=== PATIENT | female | born 1985 | race Caucasian/White ===

== ENCOUNTER 2020-04-01 16:18 | Outpatient (CLI) | payer OTHER ==
[~2020-04-01] VITALS: Ht 160 cm; Wt 105.5 kg
--- NOTE | 2020-04-01 16:30 | NUR ---
Pt arrives on unit ambulatory. G3L2 at 32 weeks per pt hx. Repeat section x 2. Recieves [facility] in [place]. Reports "menstrual-like" cramps every 5 minutes lasting 1.5minutes long. Rates pain 3/10. Denies LOF, vaginal bleeding and reports GFM. Per pt hx PIH and delivery. Changed into clean gown. EFM and toco applied. BP elevated. SVE per this RN closed/thick/high. Admission assessment completed. Dr. Sheehan on unit. Reviewed systolic BP and pt hx. Orders to oral hydrate and observe x1 hour. Pt updated on POC. Bed locked in low position. Call light within reach. No questions or concerns at this time.
[2020-04-01 16:35] VITALS: BP 169/87; PULSE 108; TEMP 97.7
[2020-04-01] MEDS ORDERED: PRENATAL VITAMI1 TA3 PO (16:35)
[2020-04-01] MEDS ORDERED: ASPIRIN 81M81 MG/TA2 PO (16:35)
[2020-04-01 16:50] VITALS: BP 146/67; PULSE 97
[2020-04-01 17:05] VITALS: BP 131/62; PULSE 91
[2020-04-01 17:20] VITALS: BP 127/60; PULSE 96
== END 2020-04-01 17:35 | disposition home or self-care (01) ==
LOC: LDRO 16:18 → LDR 16:30 → LDRO 17:35
DX: O26.893 Other specified pregnancy related conditions, third trimester (principal); R25.2 Cramp and spasm; Z3A.32 32 weeks gestation of pregnancy; Z87.59 Personal history of other complications of pregnancy, childbirth and the puerperium
CPT/HCPCS: OP

== ENCOUNTER 2020-05-18 00:11 | Emergency (ER) | payer OTHER ==
[~2020-05-18] VITALS: Ht 160 cm; Wt 109.1 kg
[~2020-05-18 00:11] MED LIST: ASPIRIN 81M81 MG/TA2 PO; PRENATAL VITAMI1 TA3 PO
[2020-05-18 00:14] VITALS: TEMP 97.9
[2020-05-18 00:39] LABS: BASO % 0.6 % (0.0-2.0); EOS # 0.3 (0.0-0.7); EOS % 4.7 % (0-4.0); GRAN # 4.1 (1.4-6.5); LYMPH # 1.6 (1.2-3.4); LYMPH % 23.7 % (20.0-51.0); MEAN CELL VOLUME 79 fl (80.0-100.0); MEAN CORPUSCULAR HGB CONC 30 g/dl (33.0-37.0); MEAN PLATELET VOLUME 10.8 fl (7.4-10.4); MONO # 0.4 (0.1-0.6); MONO % 6.3 % (1.7-9.3); PLATELET COUNT 242 K/mm3 (130-400); RED BLOOD COUNT 3.98 M/mm3 (4.10-5.30); REDCELL DISTRIBUTION WIDTH-CV 15.2 % (11.5-14.5)
[2020-05-18 00:40] LABS: ALBUMIN 3.2 gm/dL (3.5-5.0); BILIRUBIN,TOTAL 0.3 mg/dL (0.0-1.0); CALCIUM 8.8 mg/dL (8.4-10.2); CREATININE, serum 0.66 (0.52-1.25); MAGNESIUM 1.8 mg/dL (1.6-2.3); POTASSIUM 3.8 mmol/L (3.4-5.0); TOTAL PROTEIN 6.4 gm/dL (6.4-8.2)
[2020-05-18 00:41] LABS: HEMATOCRIT 31.4 % (37.0-47.0); HEMOGLOBIN 9.5 g/dl (12.5-16.0); MEAN CORPUSCULAR HEMOGLOBIN 24 pg (27.0-31.0)
[2020-05-18 00:53] LABS: INR 0.8 (0.8-3.0); PROTHROMBIN TIME 9.4 SECONDS (9.7-12.8)
[2020-05-18 00:56] LABS: PARTIAL THROMBOPLASTIN TIME 28.6 SECONDS (26.0-37.0)
[2020-05-18 02:04] LABS: COLLECTION METHOD CLEAN CATCH
[2020-05-18 02:16] LABS: MUCOUS Present /lpf; PH 6 (5-8); SQUAMOUS EPITHELIAL 0-2 /hpf; URINE APPEARANCE Clear; URINE BACTERIA None Seen /hpf; URINE BILIRUBIN Negative (NEGATIVE); URINE BLOOD 1+ (NEGATIVE); URINE COLOR Yellow; URINE GLUCOSE Negative (NEGATIVE); URINE KETONE Negative (NEGATIVE); URINE LEUKOCYTE ESTERASE Negative (NEGATIVE); URINE NITRATE Negative (NEGATIVE); URINE PROTEIN(semi-quant) Negative (NEGATIVE); URINE UROBILINOGEN Negative (NEGATIVE)
[2020-05-18] MEDS ORDERED: TRANDATE 100MG100 MG PO (02:45)
[2020-05-18 02:52] VITALS: BP 156/93; PULSE 94
== END 2020-05-18 02:52 | disposition home or self-care (01) ==
LOC: COL.ER 00:11
PROVIDERS: Emergency Medicine
DX: I10 Essential (primary) hypertension (principal); Z79.82 Long term (current) use of aspirin

== ENCOUNTER 2022-02-22 12:32 | Emergency (ER) | payer OTHER ==
[~2022-02-22] VITALS: Ht 160 cm; Wt 86.4 kg
[~2022-02-22 12:32] MED LIST changes: +TRANDATE 100MG100 MG PO
[2022-02-22] MEDS ORDERED: ADDERALL XR25 MG PO (13:01)
[2022-02-22] MEDS ORDERED: NEURONTIN100 MG/CAP PO (13:02)
[2022-02-22] MEDS ORDERED: LAMICTAL 100MG100 MG PO (13:03)
[2022-02-22 13:05] LABS: COLLECTION METHOD CLEAN CATCH
[2022-02-22 13:12] LABS: MUCOUS Present (NOT PRESENT); PH 5 (5-8); SQUAMOUS EPITHELIAL 0-2 /hpf (0-10); URINE APPEARANCE Hazy (CLEAR/HAZY); URINE BACTERIA None Seen /hpf (NONE SEEN); URINE BILIRUBIN Negative (NEGATIVE); URINE BLOOD Negative (NEGATIVE); URINE COLOR Yellow (YELLOW); URINE GLUCOSE Negative (NEGATIVE); URINE KETONE Negative (NEGATIVE); URINE LEUKOCYTE ESTERASE Negative (NEGATIVE); URINE NITRATE Negative (NEGATIVE); URINE PROTEIN(semi-quant) Negative (NEGATIVE); URINE RBC None Seen /hpf (0-2); URINE UROBILINOGEN Negative (NEGATIVE)
[2022-02-22 13:43] LABS: BASO % 0.3 % (0.0-2.0); EOS # 0.1 K/mm3 (0.0-0.7); EOS % 1.9 % (0.0-4.0); GRAN # 4.9 K/mm3 (1.4-6.5); GRAN % 69.4 % (42.2-75.2); HEMATOCRIT 46.8 % (37.0-47.0); HEMOGLOBIN 15.3 g/dl (12.5-16.0); LYMPH # 1.7 K/mm3 (1.2-3.4); LYMPH % 23.9 % (20.0-51.0); MEAN CELL VOLUME 83 fl (80.0-100.0); MEAN CORPUSCULAR HEMOGLOBIN 27 pg (27-31); MEAN CORPUSCULAR HGB CONC 33 g/dl (33.0-37.0); MEAN PLATELET VOLUME 10.3 fl (7.4-10.4); MONO # 0.3 K/mm3 (0.1-0.6); MONO % 4.2 % (1.7-9.3); PLATELET COUNT 226 K/mm3 (130-400); RED BLOOD COUNT 5.66 M/mm3 (4.10-5.30); REDCELL DISTRIBUTION WIDTH-CV 13.2 % (11.5-14.5)
[2022-02-22 13:54] LABS: ALBUMIN 4.1 gm/dL (3.5-5.0); BILIRUBIN,TOTAL 0.5 mg/dL (0.2-1.2); C-REACTIVE PROTEIN 1.14 mg/dL (0.00-0.50); CALCIUM 9.3 mg/dL (8.4-10.2); CREATININE, serum 0.83 mg/dL (0.57-1.11); POTASSIUM 3.7 mmol/L (3.5-4.5); TOTAL PROTEIN 7.8 gm/dL (6.2-8.1)
[2022-02-22] MEDS ORDERED: ZOFRAN ODT4 MG PO (16:15)
[2022-02-22 16:30] VITALS: BP 117/78; PULSE 71; TEMP 98.5
[2022-02-22] MEDS ORDERED: PERCOCET 325 MG1 TA2 PO (16:30)
== END 2022-02-22 16:42 | disposition home or self-care (01) ==
LOC: COL.ER 12:32
PROVIDERS: Nurse Practitioner
DX: R10.31 Right lower quadrant pain (principal); R59.0 Localized enlarged lymph nodes; Z87.42 Personal history of other diseases of the female genital tract; Z32.02 Encounter for pregnancy test, result negative
CPT/HCPCS: J1885; J2405; J7030; Q9967

== ENCOUNTER → 2023-07-04 | Outpatient (CLI) | payer OTHER ==
[~2023-07-04] MED LIST changes: +ADDERALL XR25 MG PO; +FLOVENT 110MCG7.9 GM IH; +LAMICTAL 100MG100 MG PO; +NEURONTIN100 MG/CAP PO; +PERCOCET 325 MG1 TA2 PO; +SINGULAIR 110 MG/TAB PO; +ZOFRAN ODT4 MG PO
== END ==
LOC: CANSCHCLI → COL.CARD 09:00 → COL.PUL 09:00 → COL.CARD 09:04
DX: R06.02 Shortness of breath (principal)
CPT/HCPCS: J7674

== ENCOUNTER → 2023-07-24 | Outpatient (CLI) | payer OTHER ==
[2023-07-24 15:59] LABS: BASO % 0.6 % (0.0-2.0); EOS # 0.2 K/mm3 (0.0-0.7); EOS % 3.5 % (0.0-4.0); GRAN # 3.7 K/mm3 (1.4-6.5); GRAN % 59.4 % (42.2-75.2); HEMATOCRIT 41.5 % (37.0-47.0); HEMOGLOBIN 13.2 g/dl (12.5-16.0); LYMPH # 1.9 K/mm3 (1.2-3.4); MEAN CELL VOLUME 83 fl (80.0-100.0); MEAN CORPUSCULAR HEMOGLOBIN 26 pg (27-31); MEAN CORPUSCULAR HGB CONC 32 g/dl (33.0-37.0); MEAN PLATELET VOLUME 10.2 fl (7.4-10.4); MONO # 0.3 K/mm3 (0.1-0.6); MONO % 5.3 % (1.7-9.3); PLATELET COUNT 249 K/mm3 (130-400); REDCELL DISTRIBUTION WIDTH-CV 13.6 % (11.5-14.5)
== END ==
LOC: COL.LAB 15:38
PROVIDERS: Obstetrics & Gynecology
DX: R06.02 Shortness of breath (principal)

== ENCOUNTER → 2023-10-13 | Outpatient (CLI) | payer OTHER | LOC: COL.VAS 09:11 | DX: I51.7 Cardiomegaly (principal) ==